=== PATIENT | male | born 1995 | race Caucasian/White ===

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

== ENCOUNTER → 2018-02-07 | Outpatient (REF) | payer OTHER ==
[2018-02-07 14:41] LABS: AMMONIA 98 uMOL/L (<32)
[2018-02-07 14:44] LABS: ALBUMIN 4.3 GM/DL (3.2-5.2); ALBUMIN/GLOBULIN RATIO 1.16 (1.00-1.93); ALKALINE PHOSPHATASE 69 U/L (45-117); ALT/SGPT 29 U/L (12-78); ANION GAP 8 MEQ/L (8-16); AST/SGOT 16 U/L (7-37); BILIRUBIN,TOTAL 0.7 MG/DL (0.2-1.0); BLOOD UREA NITROGEN 12 MG/DL (7-18); CALCIUM LEVEL 9.2 MG/DL (8.5-10.1); CARBON DIOXIDE LEVEL 29 MEQ/L (21-32); CHLORIDE LEVEL 108 MEQ/L (98-107); CREATININE FOR GFR 0.83 MG/DL (0.70-1.30); GLUCOSE, FASTING 97 MG/DL (70-100); POTASSIUM SERUM 4.2 MEQ/L (3.5-5.1); SODIUM LEVEL 145 MEQ/L (136-145); VALPROIC ACID (DEPAKOTE) 77.7 UG/ML (50.0-100.0)
== END ==
LOC: M LABNEURO 13:15
DX: R56.9 Unspecified convulsions (principal); Z51.81 Encounter for therapeutic drug level monitoring
CPT/HCPCS: 82140

== ENCOUNTER → 2018-08-29 | Outpatient (REF) | payer OTHER ==
[2018-08-29 16:29] LABS: BASO % 0.4 % (0.0-1.0); EOS # 0.2 10^3/uL (0.0-0.50); EOS % 3.5 % (0.0-3.0); HEMATOCRIT 43.8 % (42.0-52.0); HEMOGLOBIN 15.4 g/dl (13.5-17.5); IMMATURE GRANULOCYTE % 0.2 % (0-3.0); LYMPH # 1.6 10^3/uL (1.5-6.5); LYMPH % 33.1 % (24.0-44.0); MEAN CORPUSCULAR HEMOGLOBIN 30.6 pg (27.0-33.0); MEAN CORPUSCULAR HGB CONC 35.2 g/dl (32.0-36.5); MEAN CORPUSCULAR VOLUME 87.1 fl (80.0-96.0); MONO # 0.3 10^3/uL (0.0-0.8); MONO % 6.7 % (0.0-5.0); NEUTROPHILS # 2.8 10^3/uL (1.8-7.7); NEUTROPHILS % 56.1 % (36.0-66.0); PLATELET COUNT, AUTOMATED 248 10^3/uL (150-450); RED BLOOD COUNT 5.03 10^6/uL (4.30-6.10); RED CELL DISTRIBUTION WIDTH 11.4 % (11.5-14.5); WHITE BLOOD COUNT 4.9 10^3/uL (4.0-10.0)
[2018-08-29 16:51] LABS: AMMONIA 53 uMOL/L (<32)
[2018-08-29 17:07] LABS: ALBUMIN 4.6 GM/DL (3.2-5.2); ALBUMIN/GLOBULIN RATIO 1.35 (1.00-1.93); ALKALINE PHOSPHATASE 63 U/L (45-117); ALT/SGPT 38 U/L (12-78); ANION GAP 7 MEQ/L (8-16); AST/SGOT 18 U/L (7-37); BILIRUBIN,TOTAL 0.7 MG/DL (0.2-1.0); BLOOD UREA NITROGEN 17 MG/DL (7-18); CALCIUM LEVEL 9.2 MG/DL (8.5-10.1); CARBON DIOXIDE LEVEL 28 MEQ/L (21-32); CHLORIDE LEVEL 105 MEQ/L (98-107); CREATININE FOR GFR 0.88 MG/DL (0.70-1.30); GLOMERULAR FILTRATION RATE > 60.0 (>60); GLUCOSE, FASTING 82 MG/DL (70-100); POTASSIUM SERUM 4.2 MEQ/L (3.5-5.1); SODIUM LEVEL 140 MEQ/L (136-145); VALPROIC ACID (DEPAKOTE) 91.7 UG/ML (50.0-100.0)
== END ==
LOC: M LABNEURO 15:51
DX: R56.9 Unspecified convulsions (principal); Z51.81 Encounter for therapeutic drug level monitoring; Z79.899 Other long term (current) drug therapy
CPT/HCPCS: 82140

== ENCOUNTER → 2019-09-04 | Outpatient (REF) | payer OTHER ==
[2019-09-04 15:46] LABS: BASO % 0.6 % (0.0-1.0); EOS # 0.1 10^3/uL (0.0-0.5); EOS % 1.4 % (0.0-3.0); HEMATOCRIT 43.6 % (42.0-52.0); HEMOGLOBIN 14.9 g/dl (13.5-17.5); LYMPH # 1.4 10^3/uL (1.5-5.0); MEAN CORPUSCULAR HEMOGLOBIN 30.1 pg (27.0-33.0); MEAN CORPUSCULAR HGB CONC 34.2 g/dl (32.0-36.5); MEAN CORPUSCULAR VOLUME 88.1 fl (80.0-96.0); MONO # 0.3 10^3/uL (0.0-0.8); MONO % 5.7 % (0.0-5.0); NEUTROPHILS # 3.1 10^3/uL (1.5-8.5); NEUTROPHILS % 62.9 % (36.0-66.0); PLATELET COUNT, AUTOMATED 275 10^3/uL (150-450); RED BLOOD COUNT 4.95 10^6/uL (4.30-6.10); WHITE BLOOD COUNT 4.9 10^3/uL (4.0-10.0)
[2019-09-04 16:06] LABS: ALBUMIN 4.4 GM/DL (3.2-5.2); ALT/SGPT 27 U/L (12-78); BILIRUBIN,TOTAL 0.6 MG/DL (0.2-1.0); BLOOD UREA NITROGEN 12 MG/DL (7-18); CALCIUM LEVEL 9.1 MG/DL (8.5-10.1); CARBON DIOXIDE LEVEL 27 MEQ/L (21-32); CHLORIDE LEVEL 109 MEQ/L (98-107); GLOMERULAR FILTRATION RATE > 60.0 (>60); GLUCOSE, FASTING 88 MG/DL (70-100); POTASSIUM SERUM 3.8 MEQ/L (3.5-5.1); SODIUM LEVEL 142 MEQ/L (136-145); TOTAL PROTEIN 7.9 GM/DL (6.4-8.2); VALPROIC ACID (DEPAKOTE) 57.6 UG/ML (50.0-100.0)
== END ==
LOC: M LABNEURO 14:08
PROVIDERS: ATTEND Psychiatry & Neurology Neurology
DX: R56.9 Unspecified convulsions (principal)

== ENCOUNTER 2020-10-04 05:28 | Emergency (ER) | payer OTHER ==
[~2020-10-04] VITALS: Ht 180.3 cm; Wt 95.0 kg
[2020-10-04] MEDS ORDERED: DIVA500T94 PO (06:27)
[2020-10-04] MEDS ORDERED: AMPICILLIN SOD/SULBACTAM SOD 3 GM in D5W MINI-BAG PLUS 100 ML IV ONE (06:45)
[2020-10-04] MEDS ORDERED: NS 1,000 ML IV ONE (06:45)
[2020-10-04] MEDS ORDERED: dexameTHASONE 20MG/5ML VIAL (J1100 PER 1MG) IV ONE (06:45)
[2020-10-04] MEDS ORDERED: ACETAMINOPHEN *IV* 650 MG in IV 1 EA IV ONE (07:00)
[2020-10-04 07:26] LABS: HEMATOCRIT 39.2 % (42.0-52.0); HEMOGLOBIN 13.4 g/dl (13.5-17.5); MEAN CORPUSCULAR HEMOGLOBIN 28.8 pg (27.0-33.0); MEAN CORPUSCULAR HGB CONC 34.2 g/dl (32.0-36.5); MEAN CORPUSCULAR VOLUME 84.1 fl (80.0-96.0); PLATELET COUNT, AUTOMATED 173 10^3/uL (150-450); RED BLOOD COUNT 4.66 10^6/uL (4.30-6.10); WHITE BLOOD COUNT 9.3 10^3/uL (4.0-10.0)
[2020-10-04 07:52] LABS: ATYPICAL LYMPH 21 % (0-5); LYMPHOCYTES 22 % (16-44); METAMYELOCYTES 1 % (0-0); MONOCYTES 22 % (0-5); NEUTROPHILS 28 % (28-66)
[2020-10-04 07:53] LABS: ANISOCYTOSIS 1+; PLATELET ESTIMATE NORMAL (NORMAL)
[2020-10-04] MEDS ORDERED: ISOVUE-370 76% 100ML VIAL As Ordered ONE (08:11)
[2020-10-04 08:15] LABS: MONO REFLEX EBV COMP POSITIVE (NEGATIVE)
[2020-10-04 08:21] LABS: ERYTHROCYTE SEDIMENTATION RATE 21 mm/hr (0-15)
--- NOTE | 2020-10-04 08:36 | REP ---
INDICATION: L tonsillar swelling, L neck pain. COMPARISON: None. TECHNIQUE: Axial contrast-enhanced images were obtained from the thoracic inlet to the skull base with coronal and sagittal reformations using 100 cc Isovue 370 intravenous contrast material. Maximal intensity projection and multiplanar re-formation images along with 3-D rendered imaging of the arterial vasculature. This CT examination was performed using the following dose reduction techniques: Automated exposure control, adjustment of mA and/or kv according to the patient's size, and the use of iterative reconstruction technique. FINDINGS: Bilateral tonsillar swelling and parapharyngeal inflammatory changes along with reactive adenopathy (left greater than right) is appreciated without evidence for drainable fluid collection/abscess. The airway remains patent and midline. Nasopharyngeal, oropharyngeal, and hypopharyngeal spaces including the larynx appear otherwise normal. Parotid, submental, submandibular and thyroid glands are normal. Vasculature is relatively symmetric and normal. Visualized sinuses and bilateral mastoid air cells are clear. Osseous structures are intact. IMPRESSION: Bilateral tonsillar swelling and parapharyngeal inflammatory changes with reactive adenopathy consistent with upper respiratory tract infection. No drainable collection or abscess. Airway remains patent. <Electronically signed by Kamaljit Acosta > 10/04/20 [id number]
[2020-10-04] MEDS ORDERED: IBUPROFEN 800 MG TAB PO ONE (09:00)
[2020-10-04] MEDS ORDERED: PRED20TA PO (09:26)
[2020-10-04 09:30] VITALS: BP 125/67
== END 2020-10-04 10:00 | disposition home or self-care (01) ==
LOC: M ED 05:28
DX: J02.8 Acute pharyngitis due to other specified organisms (principal)
CPT/HCPCS: 70491; 80047; 83605; 85025; 85652; 86140; 86308; 87040; 87880; 93041; 96365; 96368; 96375; 99284; J0131; J1100; Q9967; U0002